=== PATIENT | male | born 1945 | race Caucasian/White ===

== ENCOUNTER 2018-06-09 13:59 | Day surgery (SDC) | payer MEDICARE, BC ==
[~2018-06-09] VITALS: Ht 190.5 cm; Wt 111.0 kg
[2018-06-09] MEDS ORDERED: normal saline 1000ml 1,000 ML IV SCH (14:45)
[2018-06-09] MEDS ORDERED: diphenhydrAMINE 25mg capsule PO PRN (14:45)
[2018-06-09] MEDS ORDERED: LORazepam 0.5 MG tablet PO PRN (14:45)
[2018-06-09 15:15] VITALS: BP 147/81
[2018-06-09] MEDS ORDERED: valacyclovir (15:59)
[2018-06-09] MEDS ORDERED: COD1CAPS6 (15:59)
[2018-06-09] MEDS ORDERED: PHILLIPS PROBIOTIC (15:59)
[2018-06-09] MEDS ORDERED: BENFOTIAMINE PO (15:59)
[2018-06-09] MEDS ORDERED: GARL10004 PO (15:59)
[2018-06-09] MEDS ORDERED: CRAN250T2 PO (15:59)
[2018-06-09] MEDS ORDERED: VALS160T2 PO (15:59)
[2018-06-09] MEDS ORDERED: LANS30CA56 PO (15:59)
[2018-06-09] MEDS ORDERED: PUMP160C PO (15:59)
[2018-06-09] MEDS ORDERED: LEVA15HF4 INH (15:59)
[2018-06-09] MEDS ORDERED: MULT-1172 (15:59)
[2018-06-09] MEDS ORDERED: LIOT5TAB7 PO (15:59)
[2018-06-09] MEDS ORDERED: [UNRECOGNIZED DRUG - OTHER] SL (15:59)
[2018-06-09] MEDS ORDERED: MAGN100T6 PO (15:59)
[2018-06-09] MEDS ORDERED: HYDR25TA4 PO (15:59)
[2018-06-09] MEDS ORDERED: PRAV80TA3 PO (15:59)
[2018-06-09] MEDS ORDERED: MOME13HF INH (15:59)
[2018-06-09] MEDS ORDERED: CHOL50004 PO (15:59)
[2018-06-09] MEDS ORDERED: iohexol 350MG/ML 100ml bottle IV ONE (16:28)
[2018-06-09] MEDS ORDERED: fentaNYL/PF 50MCG/1 ML 2ML syringe ONE (16:28)
[2018-06-09] MEDS ORDERED: midazolam 2 mg/2 ml injection ONE (16:28)
[2018-06-09] MEDS ORDERED: LIDOcaine 1% (10mg/ml)w/preservative injection 20ml MDV ONE (16:28)
[2018-06-09] MEDS ORDERED: iohexol 350 MG/ML 50ML vial IV ONE (17:06)
[2018-06-09 17:24] VITALS: BP 129/88
[2018-06-09 17:39] VITALS: BP 128/85
[2018-06-09] MEDS ORDERED: HYDROcodone/acetaminophen 5mg/325mg tablet PO PRN (17:40)
[2018-06-09] MEDS ORDERED: HYDROcodone/acetaminophen 10/325mg tab PO PRN (17:40)
[2018-06-09] MEDS ORDERED: proCHLORperazine 10 MG/2 ml inj IV PRN (17:40)
[2018-06-09] MEDS ORDERED: ondansetron/PF 4mg/2ml inj IV PRN (17:40)
[2018-06-09] MEDS ORDERED: OXAZEpam 15mg capsule PO PRN (17:40)
[2018-06-09 17:54] VITALS: BP 117/79
[2018-06-09 18:09] VITALS: BP 116/76
[2018-06-09 18:54] VITALS: BP 117/72
== END 2018-06-09 19:25 | disposition home or self-care (01) ==
LOC: SSTAY O 13:59
PROVIDERS: ATTEND Internal Medicine Interventional Cardiology
DX: I25.10 Atherosclerotic heart disease of native coronary artery without angina pectoris (principal); I10 Essential (primary) hypertension; E78.5 Hyperlipidemia, unspecified; G47.33 Obstructive sleep apnea (adult) (pediatric); I44.7 Left bundle-branch block, unspecified; I71.4 Abdominal aortic aneurysm, without rupture; J45.998 Other asthma; K21.9 Gastro-esophageal reflux disease without esophagitis; J44.9 Chronic obstructive pulmonary disease, unspecified; Z96.641 Presence of right artificial hip joint; Z72.89 Other problems related to lifestyle; Z87.891 Personal history of nicotine dependence; Z79.1 Long term (current) use of non-steroidal anti-inflammatories (NSAID); Z79.899 Other long term (current) drug therapy; Z98.890 Other specified postprocedural states
CPT/HCPCS: 93005; 93458; 99152; 99153; A6257; J1644; J2001; J2250; J3010; J7030; Q0163; Q9967; C1769